=== PATIENT | female | born 1980 | race Two or more races ===

== ENCOUNTER 2021-05-10 15:40 | Inpatient (IN) | payer SELFPAY ==
[~2021-05-10] VITALS: Ht 162.6 cm; Wt 79.1 kg
[~2021-05-10 15:40] MED LIST: GLYB5TAB3 PO
[2021-05-10 19:48] LABS: BASO # 0.1 x10^3/uL (0.0-0.2); BASO % 1 % (0-3); EOS # 0.1 x10^3/uL (0.0-0.7); EOS % 1 % (0-3); HEMATOCRIT 41.8 % (36.0-47.0); HEMOGLOBIN 13.8 g/dL (12.0-15.5); LYMPH # 2.5 x10^3/uL (1.0-4.8); LYMPH % 27 % (24-48); MEAN CORPUSCULAR HEMOGLOBIN 27 pg (25-35); MEAN CORPUSCULAR HGB CONC 33 g/dL (31-37); MEAN CORPUSCULAR VOLUME 81 fL (79-100); MONO # 0.4 x10^3/uL (0.0-1.1); MONO % 5 % (0-9); NEUT # 6.2 x10^3/uL (1.8-7.7); NEUT % 67 % (31-73); PLATELET COUNT 354 x10^3/uL (140-400); RED BLOOD COUNT 5.18 x10^6/uL (3.50-5.40); RED CELL DISTRIBUTION WIDTH 13.8 % (11.5-14.5); WHITE BLOOD COUNT 9.3 x10^3/uL (4.0-11.0)
--- NOTE | 2021-05-10 19:52 | PHYS DOC ---
Past Medical History Past Medical History: Diabetes-Type II Past Surgical History: No Surgical History Smoking Status: Never Smoker Alcohol Use: None General Adult EDM: Chief Complaint: SHORTNESS OF BREATH HPI: HPI: Patient is a 40 year old female who presents with shortness of breath that began yesterday. Patient states she noticed that she was more short of breath yesterday, and that it is worse on exertion and with laying down flat. Patient denies pulmonary past medical history, including COPD and asthma. She denies any other symptoms including runny nose, sore throat, cough, chest pain, palpitations. Patient has not vaccinated against COVID-19 nor has she received a flu vaccination this season. She denies sick contacts. Patient has no other complaints at this time. Review of Systems: Review of Systems: Constitutional: Denies fever, chills or generalized weakness Eyes: Denies change in visual acuity, visual field deficits or discharge HENT: Denies ear pain, nasal congestion or sore throat Respiratory: Denies cough, reports shortness of breath Cardiovascular: Denies chest pain, palpitations or edema GI: Denies abdominal pain, nausea, vomiting, bloody stools or diarrhea : Denies dysuria or hematuria Musculoskeletal: Denies back pain or joint pain Integument: Denies rash or other skin lesion Neurologic: Denies headache, focal weakness or sensory changes Heart Score: C/O Chest Pain: No Allergies: Allergies: Allergies Coded Allergies Type Severity Reaction Last Updated Verified No Known Drug Allergies 11/01/20 No Physical Exam: PE: Constitutional: Well developed, well nourished, no acute distress, non-toxic appearance. HENT: Normocephalic, atraumatic, bilateral external ears normal, nose normal. Eyes: EOMI, conjunctiva normal, no discharge. Neck: Normal range of motion, no stridor. Cardiovascular: Tachycardia with regular rhythm. No murmurs, rubs or gallops. Lungs & Thorax: Bilateral breath sounds clear to auscultation, diminished especially in the bases. Skin: Warm, dry, no erythema, no rash. Extremities: No tenderness, no cyanosis, no clubbing, ROM intact, no edema. Neurologic: Alert and oriented x4, no focal deficits noted. Current Patient Data: Labs: Laboratory Tests Test 05/10/21 19:28 05/10/21 19:38 05/10/21 19:40 05/10/21 19:47 Urine Collection Type Unknown Urine Color Straw Urine Clarity Hazy Urine pH 6.0 (<5.0-8.0) Urine Specific [place] 1.010 (1.000-1.030) Urine Protein Negative mg/dL (NEG-TRACE) Urine Glucose (UA) >=1000 mg/dL (NEG) Urine Ketones (Stick) Negative mg/dL (NEG) Urine Blood Trace (NEG) Urine Nitrite Negative (NEG) Urine Bilirubin Negative (NEG) Urine Urobilinogen Dipstick 0.2 mg/dL (0.2 mg/dL) Urine Leukocyte Esterase Small (NEG) Urine RBC 1-2 /HPF (0-2) Urine WBC 11-20 /HPF (0-4) Urine Squamous Epithelial Cells Many /LPF Urine Bacteria Many /HPF (0-FEW) Urine Mucus Slight /LPF Urine Yeast Present /HPF Urine Opiates Screen Neg (NEG) Urine Methadone Screen Neg (NEG) Urine Barbiturates Neg (NEG) Urine Phencyclidine Screen Neg (NEG) Urine Amphetamine/Methamphetamine Neg (NEG) Urine Benzodiazepines Screen Neg (NEG) Urine Cocaine Screen Neg (NEG) Urine Cannabinoids Screen Neg (NEG) Urine Ethyl Alcohol Neg (NEG) White Blood Count 9.3 x10^3/uL (4.0-11.0) Red Blood Count 5.18 x10^6/uL (3.50-5.40) Hemoglobin 13.8 g/dL (12.0-15.5) Hematocrit 41.8 % (36.0-47.0) Mean Corpuscular Volume 81 fL (79-100) Mean Corpuscular Hemoglobin 27 pg (25-35) Mean Corpuscular Hemoglobin Concent 33 g/dL (31-37) Red Cell Distribution Width 13.8 % (11.5-14.5) Platelet Count 354 x10^3/uL (140-400) Neutrophils (%) (Auto) 67 % (31-73) Lymphocytes (%) (Auto) 27 % (24-48) Monocytes (%) (Auto) 5 % (0-9) Eosinophils (%) (Auto) 1 % (0-3) Basophils (%) (Auto) 1 % (0-3) Neutrophils # (Auto) 6.2 x10^3/uL (1.8-7.7) Lymphocytes # (Auto) 2.5 x10^3/uL (1.0-4.8) Monocytes # (Auto) 0.4 x10^3/uL (0.0-1.1) Eosinophils # (Auto) 0.1 x10^3/uL (0.0-0.7) Basophils # (Auto) 0.1 x10^3/uL (0.0-0.2) Prothrombin Time 12.5 SEC (11.7-14.0) Prothromb Time International Ratio 0.9 (0.8-1.1) Activated Partial Thromboplast Time 32 SEC (24-38) D-Dimer (Mandi) 3.34 ug/mlFEU (0.00-0.50) Sodium Level 132 mmol/L (136-145) Potassium Level 3.9 mmol/L (3.5-5.1) Chloride Level 94 mmol/L (98-107) Carbon Dioxide Level 26 mmol/L (21-32) Anion Gap 12 (6-14) Blood Urea Nitrogen 10 mg/dL (7-20) Creatinine 0.9 mg/dL (0.6-1.0) Estimated GFR (Cockcroft-Gault) 69.0 BUN/Creatinine Ratio 11 (6-20) Glucose Level 428 mg/dL (70-99) Calcium Level 9.0 mg/dL (8.5-10.1) Total Bilirubin 0.3 mg/dL (0.2-1.0) Aspartate Amino Transf (AST/SGOT) 9 U/L (15-37) Alanine Aminotransferase (ALT/SGPT) 17 U/L (14-59) Alkaline Phosphatase 150 U/L (46-116) AW-Ryi-S-Type Natriuretic Peptide 2799 pg/mL (0-124) Total Protein 9.0 g/dL (6.4-8.2) Albumin 3.4 g/dL (3.4-5.0) Albumin/Globulin Ratio 0.6 (1.0-1.7) Influenza Type A Antigen Negative (NEGATIVE) Influenza Type B Antigen Negative (NEGATIVE) Bedside Urine HCG, Qualitative Hcg negative (Negative) Vital Signs: Vital Signs Date Time Temp Pulse Resp B/P (MAP) Pulse Ox O2 Delivery O2 Flow Rate FiO2 05/10/21 15:40 99.0 103 16 126/88 (101) 96 Room Air 99.0 Radiology/Procedures: Radiology/Procedures: PROCEDURE: CHEST AP ONLY Single view chest dated 05/10/2021 8:22 PM: COMPARISON: 11/01/2020 Clinical Indication: Shortness of breath. Findings: Single upright portable exam of the chest was performed. Heart and mediastinal contours are stable. Patchy airspace disease at both lung bases with blunting t he costophrenic sulci, new from prior study. No pneumothorax. IMPRESSION: Patchy bibasilar airspace disease, atelectasis versus pneumonia. There are small pleural effusions. Electronically signed by: Trae Monson MD (05/10/2021 8:23 PM) [facility] PROC[facility]: CT ANGIOGRAPHY CHEST Exam: CT of chest with contrast INDICATION: Shortness of breath, tachycardia TECHNIQUE: Sequential axial images through the chest obtained following the administration of 99 mL of Isovue-370 IV contrast. Sagittal and coronal reformatted images were reconstructed from the axial data and reviewed. Exposure: One or more of the following in the visualized dose reduction techniques were utilized for this examination: 1. Automated exposure control 2. Adjustment of the MA and/or KV according to patient size 3. Use of iterative of reconstructive technique Comparisons: 05/10/2021 FINDINGS: Visualized portions of the thyroid are unremarkable. No enlarged mediastinal lymph nodes are identified. It size is normal. No pericardial effusion. Thoracic aorta has normal course and caliber. Pulmonary artery is not enlarged. No pulmonary embolus identified within the main, lobar or segmental pulmonary arteries. Airways are patent. No consolidation or pneumothorax. No suspicious lung nodules. Bandlike opacity at lung bases likely representing atelectasis. Small bilateral pleural effusions greater on the right. Visualized upper abdomen is unremarkable. No suspicious osseous lesions or acute fractures. IMPRESSION: 1. No pulmonary embolus identified within the main, lobar or segmental pulmonary arteries. 2. Small to moderate bilateral pleural effusions greater on the right. There is adjacent atelectasis. Electronically signed by: Wilver Manning MD (05/10/2021 8:53 PM) [facility] Course & Med Decision Making: Course & Med Decision Making Pertinent Labs and Imaging studies reviewed. (See chart for details) Patient is a 40-year-old female with past medical history of diabetes type 2 who presents with shortness of breath that began yesterday. She has no pulmonary history or cardiac history. Work-up today will consist of labs including D- dimer, chest x-ray. D-dimer elevated at 3.34 and patient remains tachycardic in the department. CT angio chest obtained to evaluate for pulmonary embolism. CT angio does not reveal pulmonary embolism, however patient has bilateral moderately sized pleural effusions. Dr. Mac, hospitalist contacted for patient admission. He gladly accepts patient, and recommends adding a urine drug screen and INR studies. Should the patient BNP, which is still pending, be elevated greater than 200, he recommends 20 IV Lasix to be administered prior to transportation to inpatient floor. Patient was made aware of findings. She understands and is agreeable to admission. Debbie Disclaimer: Debbie Disclaimer: This electronic medical record was generated, in whole or in part, using a voice recognition dictation system. Departure Departure Impression: Primary Impression: Bilateral pleural effusion Additional Impression: Dyspnea and respiratory abnormality Disposition: ADMITTED INPATIENT Admitting Physician: YURIY (Bubba) Condition: GUARDED (ERASED) Referrals: NO PCP (PCP) MYLES BERTRAND May 10, 2021 19:52
[2021-05-10 19:58] LABS: CREATININE 0.9 mg/dL (0.6-1.0); POTASSIUM 3.9 mmol/L (3.5-5.1)
[2021-05-10 20:04] LABS: ALBUMIN 3.4 g/dL (3.4-5.0); ALBUMIN/GLOBULIN RATIO 0.6 (1.0-1.7); TOTAL BILIRUBIN 0.3 mg/dL (0.2-1.0)
[2021-05-10 20:07] LABS: INFLUENZA A PATIENT NEGATIVE (NEGATIVE); INFLUENZA B PATIENT NEGATIVE (NEGATIVE)
--- NOTE | 2021-05-10 20:26 | RAD ---
Single view chest dated 05/10/2021 8:22 PM: COMPARISON: 11/01/2020 Clinical Indication: Shortness of breath. Findings: Single upright portable exam of the chest was performed. Heart and mediastinal contours are stable. P atchy airspace disease at both lung bases with blunting the costophrenic sulci, new from prior study. No pneumothorax. IMPRESSION: Patchy bibasilar airspace disease, atelectasis versus pneumonia. There are small pleural effusions. Electronically signed by: Trae Monson MD (05/10/2021 8:23 PM) [facility]
--- NOTE | 2021-05-10 20:55 | RAD ---
Exam: CT of chest with contrast INDICATION: Shortness of breath, tachycardia TECHNIQUE: Sequential axial images through the chest obtained following the administration of 99 mL o f Isovue-370 IV contrast. Sagittal and coronal reformatted images were reconstructed from the axial d jess and reviewed. Exposure: One or more of the following in the visualized dose reduction techniques were utilized for this examination: 1. Automated exposure control 2. Adjustment of the MA and/or KV according to patient size 3. Use of iterative of reconstructive technique Comparisons: 05/10/2021 FINDINGS: Visualized portions of the thyroid are unremarkable. No enlarged mediastinal lymph nodes are identifi ed. It size is normal. No pericardial effusion. Thoracic aorta has normal course and caliber. Pulmonary a rtery is not enlarged. No pulmonary embolus identified within the main, lobar or segmental pulmonary arteries. Airways are patent. No consolidation or pneumothorax. No suspicious lung nodules. Bandlike opacity at lung bases likely representing atelectasis. Small bilateral pleural effusions greater on the right. Visualized upper abdomen is unremarkable. No suspicious osseous lesions or acute fractures. IMPRESSION: 1. No pulmonary embolus identified within the main, lobar or segmental pulmonary arteries. 2. Small to moderate bilateral pleural effusions greater on the right. There is adjacent atelectasis . Electronically signed by: Wilver Manning MD (05/10/2021 8:53 PM) [facility]
[2021-05-10] MEDS ORDERED: IOHEXOL 350 MG/ML 100 ML VIAL. IV ONE (21:00)
[2021-05-10 21:48] LABS: BILIRUBIN,URINE NEGATIVE (NEG); CLARITY,URINE HAZY; COLOR,URINE STRAW
[2021-05-10 21:48] LABS: PROTHROMBIN TIME PATIENT 12.5 SEC (11.7-14.0)
[2021-05-10 21:49] LABS: NITRITE,URINE NEGATIVE (NEG); PROTEIN,URINE NEGATIVE (NEG-TRACE); UROBILINOGEN,URINE 0.2 mg/dL (0.2 mg/dL)
[2021-05-10 21:51] LABS: BACTERIA,URINE MANY /HPF (0-FEW)
[2021-05-10 21:52] LABS: YEAST,URINE PRESENT /HPF
[2021-05-10 21:54] LABS: BARBITURATES NEG (NEG); BENZODIAZEPINES NEG (NEG); CANNABINOIDS NEG (NEG); COCAINE NEG (NEG); METHADONE NEG (NEG); OPIATES NEG (NEG); PHENCYCLIDINE NEG (NEG)
[2021-05-10 21:58] LABS: AMPHETAMINE/METHAMPHETAMINE NEG (NEG)
[2021-05-10] MEDS: FUROSEMIDE 20 MG/2 ML VIAL. IVP SCH (22:18)
[2021-05-10 23:00] VITALS: BP 119/80
[2021-05-11] MEDS ORDERED: INSULIN GLARGINE SYRINGE. SQ SCH
[2021-05-11] MEDS ORDERED: guaiFENesin DM 200MG/20MG 10 ML SYRUP PO PRN
[2021-05-11] MEDS ORDERED: ACETAMINOPHEN 325 MG TABLET. PO PRN
[2021-05-11] MEDS ORDERED: DEXTROSE 50% 25 GM / 50ML DISP.SYRIN. IV PRN
[2021-05-11] MEDS ORDERED: IV DEXTROSE 5% 250 ML BAG. IV PRN
[2021-05-11] MEDS ORDERED: ONDANSETRON PF 4 MG/2 ML VIAL. IVP PRN
[2021-05-11] MEDS ORDERED: INSULIN LISPRO 300 UNITS/3 ML VIAL. SQ ONE
[2021-05-11] MEDS ORDERED: traMADol 50 MG TABLET PO PRN
[2021-05-11] MEDS ORDERED: hydrALAZINE 20 MG/ML VIAL. IVP PRN
[2021-05-11 03:14] VITALS: BP 99/65
[2021-05-11 07:00] VITALS: BP 84/56
[2021-05-11] MEDS: INSULIN LISPRO 300 UNITS/3 ML VIAL. SQ SCH ×2 (08:00→11:55)
[2021-05-11] MEDS ORDERED: INSULIN LISPRO 300 UNITS/3 ML VIAL. SQ SCH (08:00)
[2021-05-11] MEDS ORDERED: FLU VACC QUAD 21-22 (6MOS+) PF 0.5 ML SYRINGE. VAX IM ONE (09:00)
[2021-05-11] MEDS: FUROSEMIDE 20 MG/2 ML VIAL. IVP SCH (09:00)
[2021-05-11 11:00] VITALS: BP 99/77
--- NOTE | 2021-05-11 11:53 | CONS ---
DATE OF CONSULTATION: 05/11/2021 PULMONARY CONSULTATION ATTENDING PHYSICIAN: Rodolfo Lamar MD. REASON FOR CONSULTATION: Pleural effusion. HISTORY OF PRESENT ILLNESS: The patient is a 40-year-old obese patient who has no significant tobacco use. She is not vaccinated for COVID. The patient was brought into the hospital with some shortness of breath. She had no chest pain. No cough, no fever, no chills. The patient had no sick contacts. She has no known cardiac history. She underwent imaging study at [facility] and I have reviewed the patient's CTA chest. There was no evidence of pulmonary embolism. There were bilateral basilar pleural effusion, slightly more on the right than on the left. There is associated atelectasis. She was diuresed and she feels better. She is currently on room air. PAST MEDICAL HISTORY: Diabetes. PAST SURGICAL HISTORY: None. SOCIAL HISTORY: Nonsmoker. ALLERGIES: None. MEDICATIONS: Reviewed as listed in the MRAD. REVIEW OF SYSTEMS: As discussed in my history of present illness, otherwise noncontributory. FAMILY HISTORY: Noncontributory to lungs. PHYSICAL EXAMINATION: VITAL SIGNS: Reviewed. Blood pressure 84-99 systolic. Pulse ox 93% on room air. She is afebrile. NECK: Supple. LUNGS: Clear. CARDIOVASCULAR: With a regular rate. ABDOMEN: Soft. EXTREMITIES: With no pitting edema. LABORATORY DATA: Reviewed. Influenza negative. BUN 10, creatinine 0.9. White cell count normal. IMPRESSION: Dyspnea without significant hypoxia related to bibasilar pleural effusions. Etiology could be congestive heart failure. She has no known cardiac history. Clinically, she is much better. There was no evidence of pulmonary embolism. She has no significant tobacco history and no history of asthma. RECOMMENDATIONS: 1. From a pulmonary standpoint, she is stable to be discharged home. She is currently on room air. 2. I would recommend having a followup echocardiogram as an outpatient. This was related to the patient's nurse who has scheduled outpatient echocardiogram. 3. Okay from a pulmonary standpoint to be discharged. CELE REIS: Alexis TID: [id number]
[2021-05-11] MEDS ORDERED: INSU100V8 SQ (12:28)
--- NOTE | 2021-05-11 12:49 | SSS ---
DATE OF SERVICE: 05/11/2021 ADMIT DATE: 05/10/2021 CHIEF COMPLAINT: Shortness of breath. HISTORY OF PRESENT ILLNESS: The patient is a pleasant 40-year-old female who has no previous history of any heart problems or any COPD or tobacco abuse. She presented with shortness of breath. While in the ER, she was noted to have some pleural effusions. She was admitted overnight for observation. This morning, we will consult Dr. Hidalgo. I have also seen and examined the patient. She is doing well. We will plan to discharge. PAST MEDICAL HISTORY: Diabetes. ALLERGIES: None. FAMILY HISTORY: Diabetes. SOCIAL HISTORY: She does not drink, smoke or take drugs. MEDICATIONS: Glyburide 5 daily. REVIEW OF SYSTEMS: GENERAL: No history of weight change, weakness or fevers. SKIN: No bruising, hair changes or rashes. EYES: No blurred, double or loss of vision. NOSE AND THROAT: No history of nosebleeds, hoarseness or sore throat. HEART: No history of palpitations, chest pain or shortness of breath on exertion. LUNGS: Denies cough, hemoptysis, wheezing or shortness of breath. GASTROINTESTINAL: Denies changes in appetite, nausea, vomiting, diarrhea or constipation. GENITOURINARY: No history of frequency, urgency, hesitancy or nocturia. NEUROLOGIC: Denies history of numbness, tingling, tremor or weakness. PSYCHIATRIC: No history of panic, anxiety or depression. ENDOCRINE: No history of heat or cold intolerance, polyuria or polydipsia. EXTREMITIES: Denies muscle weakness, joint pain, pain on walking or stiffness. PHYSICAL EXAMINATION: VITALS: Within normal limits and are stable. GENERAL: No apparent distress. Alert and oriented. HEENT: Normal cephalic atraumatic, external auditory canals are patent EYES: Extraocular muscles are intact, pupils are equally round and reactive to light and accommodation MUSCULOSKELETAL: Well developed, well nourished, good range of motion ENDOCRINE: No thyromegaly was palpated LYMPHATICS: No cervical chain or axillary nodes were noted HEMATOPOIETIC: No bruising NECK: Supple, no JVD, no thyromegaly was noted. LUNGS: Clear to auscultation in all lung aragon without rhonchi or wheezing. HEART: RRR, S1, S2 present. Peripheral pulses intact, no obvious murmurs were noted. ABDOMEN: Soft, nontender. Positive bowel sounds no organomegaly, normal bowel sounds. EXTREMITIES: Without any cyanosis, clubbing, or edema. Pedal pulses intact, Homans sign is negative. NEUROLOGIC: Normal speech, normal tone. A and O x 3, moves all extremities, no obvious focal deficits. PSYCHIATRIC: Normal affect, normal mood. Stable. SKIN: No ulcerations or rashes, good skin turgor, no jaundice. VASCULAR: Good capillary refill, neurovascular bundle appears to be intact. IMAGING: Chest x-ray shows bilateral pleural effusions, greater on the right. LABORATORY DATA: White count 9, hemoglobin 13, platelets 354. Sodium is 132, potassium 3.9, chloride 94, bicarb 26, BUN 10, creatinine 0.9, glucose 428, we got it down to 172. ASSESSMENT AND PLAN: Resolving shortness of breath with mild small pleural effusions. As previously stated, we admitted overnight for observation. She is doing well this morning. Dr. Hidalgo is okay with her going home. I am okay with her going home. We will discharge. DISPOSITION: Home. ACTIVITY: As tolerated. DIET: Low sodium. MEDICATIONS: Please see the MRAD. Total time 32 minutes. DOTTIE/PANCHITO DR: DOTTIE/sue TID: [id number]
== END 2021-05-11 15:00 | disposition home or self-care (01) | DRG 187 ==
LOC: ER 15:40 → 6 SOUTH 21:59
PROVIDERS: ADMIT Internal Medicine; ATTEND Internal Medicine
DX: J90 Pleural effusion, not elsewhere classified (principal); J98.11 Atelectasis; E11.9 Type 2 diabetes mellitus without complications; E66.9 Obesity, unspecified; Z83.3 Family history of diabetes mellitus; Z68.29 Body mass index [BMI] 29.0-29.9, adult; Z20.822 Contact with and (suspected) exposure to COVID-19
CPT/HCPCS: 36415; 71045; 71275; 80053; 80307; 81001; 81025; 82962; 83880; 85025; 85379; 85610; 85730; 87077; 87086; 87147; 87186; 87804; J1815; J1940; Q9967; U0003; 99285-25; G0378